=== PATIENT | female | born 1965 | race Caucasian/White ===

== ENCOUNTER 2017-10-30 18:31 | Emergency (ER) | payer MEDICAID ==
[~2017-10-30] VITALS: Ht 167.6 cm; Wt 93.9 kg
[2017-10-30 18:37] VITALS: Ht 167.6 cm; Wt 93.9 kg
[2017-10-30 20:44] VITALS: BP 169/84
== END 2017-10-30 20:44 | disposition home or self-care (01) ==
LOC: ED 18:31
DX: S16.1XXA Strain of muscle, fascia and tendon at neck level, initial encounter (principal); M79.1 Myalgia; R03.0 Elevated blood-pressure reading, without diagnosis of hypertension; V49.59XA Passenger injured in collision with other motor vehicles in traffic accident, initial encounter; Y93.89 Activity, other specified; Y99.8 Other external cause status; Y92.89 Other specified places as the place of occurrence of the external cause
CPT/HCPCS: J1885

== ENCOUNTER 2018-09-08 12:25 | Emergency (ER) | payer MEDICAID ==
[~2018-09-08] VITALS: Ht 154.9 cm; Wt 85.3 kg
[2018-09-08 12:40] VITALS: Ht 154.9 cm; Wt 85.3 kg
[2018-09-08 13:35] LABS: BASOPHIL % 0.4 % (0-2); PLATELET COUNT 287 x10^3mcL (130-400); RED CELL DISTRIBUTION WIDTH 13.8 % (11.5-14.5)
[2018-09-08 13:45] LABS: CALCIUM 9.4 mg/dL (8.5-10.1); CARBON DIOXIDE 28.7 mmol/L (21-32); CHLORIDE SERUM 103 mmol/L (98-107); CREATININE SERUM 0.8 mg/dL (0.6-1.0); GFR1 > 60 mL/min; GLUCOSE SERUM 89 mg/dL (74-106); POTASSIUM SERUM 3.9 mmol/L (3.5-5.1); SODIUM SERUM 140 mmol/L (136-145)
[2018-09-08 13:49] LABS: ALKALINE PHOSPHATASE 119 U/L (46-116); ALT/SGPT 146 U/L (14-59); AMYLASE 60 U/L (25-115); AST/SGOT 49 U/L (15-37); BILIRUBIN TOTAL 0.7 mg/dL (0.20-1.00); LIPASE 67 IU/L (73-393); TOTAL PROTEIN, SERUM 8.5 g/dL (6.4-8.2)
[2018-09-08 14:46] VITALS: BP 125/78
[2018-09-08 14:47] LABS: UA SPECIFIC GRAVITY <=1.005 (1.005-1.035); microscopic required? YES; urine erythrocyte TRACE (NEGATIVE)
[2018-09-08 14:58] LABS: AMPHETAMINE QUAL UR NONE DETECTED (See below)
== END 2018-09-08 16:09 | disposition home or self-care (01) ==
LOC: ED 12:25
PROVIDERS: Emergency Medicine
DX: K29.70 Gastritis, unspecified, without bleeding (principal); N39.0 Urinary tract infection, site not specified; Z87.11 Personal history of peptic ulcer disease
CPT/HCPCS: J1885; J2270; J2405; J7030

== ENCOUNTER 2019-04-02 10:14 | Emergency (ER) | payer MEDICAID ==
[~2019-04-02] VITALS: Ht 160 cm; Wt 83.0 kg
[2019-04-02 10:22] VITALS: Ht 160 cm; Wt 83.0 kg
[2019-04-02 10:48] LABS: BASOPHIL % 0.9 % (0-2); PLATELET COUNT 211 x10^3mcL (130-400); RED CELL DISTRIBUTION WIDTH 13.3 % (11.5-14.5)
[2019-04-02 11:21] LABS: CALCIUM 8.7 mg/dL (8.5-10.1); CARBON DIOXIDE 26.7 mmol/L (21-32); CHLORIDE SERUM 105 mmol/L (98-107); CREATININE SERUM 0.7 mg/dL (0.6-1.0); GFR1 > 60 mL/min; GLUCOSE SERUM 88 mg/dL (74-106); POTASSIUM SERUM 3.7 mmol/L (3.5-5.1); SODIUM SERUM 142 mmol/L (136-145)
[2019-04-02 11:25] LABS: ALBUMIN 3.8 g/dL (3.4-5.0); ALKALINE PHOSPHATASE 66 U/L (46-116); ALT/SGPT 39 U/L (14-59); AST/SGOT 17 U/L (15-37); BILIRUBIN TOTAL 0.5 mg/dL (0.20-1.00); TOTAL PROTEIN, SERUM 7.6 g/dL (6.4-8.2)
[2019-04-02 13:05] VITALS: BP 124/70
== END 2019-04-02 13:05 | disposition home or self-care (01) ==
LOC: ED 10:14
DX: R07.89 Other chest pain (principal); R11.0 Nausea; R06.02 Shortness of breath; R07.0 Pain in throat
CPT/HCPCS: 36415; Q0092